=== PATIENT | male | born 1975 | race Caucasian/White ===

== ENCOUNTER 2017-11-28 15:58 | Emergency (ER) | payer SELFPAY ==
[2017-11-28 16:00] VITALS: BP 147/76
[2017-11-28] MEDS ORDERED: MORPHINE SULFATE 8 MG/ML INJ IV PUSH ONE (16:15)
[2017-11-28] MEDS ORDERED: LIDOCAINE 1%/EPINEPHrine 1:100,000 SOLN 50 ML VIAL INFIL ONE (16:15)
--- NOTE | 2017-11-28 16:18 | PD ---
HPI Chief Complaint: Forearm injury Time Seen by Provider: 16:11 Travel History International Travel<30 days: No Contact w/Intl Traveler<30days: No History of Present Illness HPI 42yo M with no significant PMH presents to the ED with c/o left arm injury from [employer] today. Pt was cutting a tree limb when he accidentally cut his left forearm with the chain saw. Denies any fall, head trauma, chest pain, sob, n/v , abdominal pain, focal weakness. Pt does feel less in left thumb and has sharp pain from the cut. Tetanus was last year. PFSH Past Medical History Arthritis: No Asthma: No Autoimmune Disease: No Blood Disorders: No Heart Rhythm Problems: No Cancer: No Cardiovascular Problems: No High Cholesterol: No Chemotherapy: No Chest Pain: No Congestive Heart Failure: No COPD: No Cerebrovascular Accident: No Diminished Hearing: No Endocrine: No Gastrointestinal Disorders: Yes (HEMORROIDS) GERD: No Glaucoma: No Genitourinary: No Headaches: No Hepatitis: No Hiatal Hernia: No Hypertension: No Immune Disorder: No Kidney Stones: No Musculoskeletal: No Neurologic: No Psychiatric: No Reproductive: No Respiratory: No Migraines: No Myocardial Infarction: No Radiation Therapy: No Renal Failure: No Seizures: No Sickle Cell Disease: No Ulcer: No Past Surgical History Abdominal Surgery: No AICD: No Appendectomy: No Arteriovenous Shunt: No Cardiac Surgery: No Cholecystectomy: No Ear Surgery: No Endocrine Surgery: No Eye Surgery: No Genitourinary Surgery: No Gynecologic Surgery: No Insulin Pump: No Joint Replacement: No Oral Surgery: No Pacemaker: No Thoracic Surgery: No Social History Alcohol Use: No Tobacco Use: No Substance Use: No Allergies-Medications (Allergen,Severity, Reaction): Coded Allergies: No Known Allergies (Verified Allergy, Mild, 11/28/17) bee venom protein (honey bee) (Unverified Allergy, Mild, SWELLING, 11/28/17 ) Reported Meds & Prescriptions Reported Meds & Active Scripts Active Ibuprofen 600 Mg Tab 600 Mg PO Q8HR PRN Cephalexin 500 Mg Cap 500 Mg PO Q12H 7 Days Review of Systems Except as stated in HPI: all other systems reviewed are Neg Physical Exam Narrative GENERAL: 42yo M in moderate distress. SKIN: Focused skin assessment warm/dry. HEAD: Atraumatic. Normocephalic. CARDIOVASCULAR: Regular rate and rhythm. No murmur appreciated. RESPIRATORY: No accessory muscle use. Clear to auscultation. Breath sounds equal bilaterally. GASTROINTESTINAL: Abdomen soft, non-tender, nondistended. MUSCULOSKELETAL: Left upper extremity:+ Macerated laceration in radial aspect of dorsum of mid left forearm. Radial pulse 2+. FROM in left wrist. FROM in all digits. Decreased sensation in left thumb. Muscle strength intact in median, ulnar and radial distribution. NEUROLOGICAL: Awake and alert. No obvious cranial nerve deficits. Motor grossly within normal limits. Normal speech. PSYCHIATRIC: Appropriate mood and affect; insight and judgment normal. Data Data Last Documented VS Vital Signs Date Time Temp Pulse Resp B/P (MAP) Pulse Ox O2 Delivery O2 Flow Rate FiO2 11/28/17 18:24 98.1 77 18 117/66 (83) 96 Room Air Orders Orders Morphine Inj (Morphine Inj) (11/28/17 16:15) Forearm (2vws) (11/28/17 ) Lidocai-Epi 1%-1:100,000 Inj (Xylocaine- (11/28/17 16:30) Morphine Inj (Morphine Inj) (11/28/17 16:30) Ed Discharge Order (11/28/17 17:57) [facility] Medical Decision Making Medical Screen Exam Complete: Yes Emergency Medical Condition: Yes Differential Diagnosis Fracture vs. foreign body retention vs. complicated laceratiion Narrative Course 42yo M with maceration laceration to left radial dorsal aspect of mid forearm. Neurovascular intact except mild decreased sensation in left thumb. Xray of left forearm showed soft tissue swelling and irregularity with no metallic foreign bodies or underlying bony abnormality. Pt given morphine for pain. Laceration repaired after thorough irrigation of wound. Pt is to follow up with orthopedic for follow up. Procedures Procedure Narrative LACERATION LOCATION: Left forearm LENGTH: 8cm by 3cm NUMBER OF STITCHES/TAMMY: 12 stitches REPAIR: The area of the laceration was prepped with Betadine and sterilely draped. The laceration was infiltrated with 1% lidocaine and epinephrine. The wound was copiously irrigated and explored without evidence of foreign body. The wound was closed using combination of 3- 0 and 4-0 nylon. This was a single layer repair. A sterile dressing was applied. The patient was advised to keep the dressing clean and dry. Patient tolerated the procedure well. Diagnosis Primary Impression: Forearm injury Qualified Codes: S59.912A - Unspecified injury of left forearm, initial encounter Referrals: Maylin Ayala MD call for appointment Decreased sensation in left thumb after chainsaw injury to left forearm. Patient Instructions: General Instructions Departure Forms: Tests/Procedures Additional Instructions: Please return to the ED in 10-14 days for suture removal. Please follow up with hand surgery as an outpatient. Return to the ED if symptoms worsen. Med/Other Pt SpecificInfo: Prescription(s) given Scripts Ibuprofen (Ibuprofen) 600 Mg Tab 600 MG PO Q8HR Y for PAIN, #20 TAB 0 Refills Prov: Radha Goldsmith DO 11/28/17 Cephalexin (Cephalexin) 500 Mg Cap 500 MG PO Q12H for Infection for 7 Days, #14 CAP 0 Refills Prov: Radha Goldsmith DO 11/28/17 Disposition: 01 DISCHARGE HOME Condition: Stable Radha Goldsmith DO Nov 28, 2017 16:18
[2017-11-28] MEDS ORDERED: MORPHINE SULFATE 8 MG/ML INJ IM ONE (16:30)
[2017-11-28] MEDS ORDERED: LIDOCAINE 1%/EPINEPHrine 1:100,000 SOLN 30 ML VIAL INFIL ONE (16:30)
--- NOTE | 2017-11-28 16:53 | RADRPT ---
EXAM DATE/TIME: 11/28/2017 16:26 [facility] COMPARISON: No previous studies available for comparison. INDICATIONS : Left forearm pain and laceration after injury with chainsaw. MEDICAL HISTORY : None. SURGICAL HISTORY : None. ENCOUNTER: Initial ACUITY: 1 day PAIN SCORE: 10/10 LOCATION: Left mid forearm. FINDINGS: Two view examination of the left forearm demonstrates no evidence of fracture or dislocation. Bony m ineralization is normal. There is focal soft tissue swelling and irregularity of the dorsum of the di stal forearm. CONCLUSION: Soft tissue swelling and irregularity with no metallic foreign bodies or underlying b edmund abnormality. Malik Phillips MD on November 28, 2017 at 16:50 Board Certified Radiologist. This report was verified electronically.
[2017-11-28] MEDS ORDERED: CEPH500C PO (17:56)
[2017-11-28] MEDS ORDERED: IBUP-232 PO (17:56)
[2017-11-28 18:22] VITALS: BP 117/66
[2017-11-28 18:24] VITALS: BP 117/66; PULSE 77; RESP 18; TEMP 98.1; O2SAT 96
== END 2017-11-28 18:25 | disposition home or self-care (01) ==
LOC: PHED 15:58
DX: S51.812A Laceration without foreign body of left forearm, initial encounter (principal); W29.3XXA Contact with powered garden and outdoor hand tools and machinery, initial encounter
CPT/HCPCS: 12004; 73090; 96374; 99283; J2270